=== PATIENT | female | born 1955 | race Caucasian/White ===

== ENCOUNTER → 2017-09-12 | Outpatient (CLI) | payer OTHER ==
[~2017-09-12] MED LIST: ASPIRIN; IBUPROFEN; KET10 PO; LEVO25TA56 PO; LEVO50TA80 PO; PER PO; TYLENOL; VITAMIN D
--- NOTE | 2017-09-12 15:56 | RADIOLOGY IMAGING REPORT ---
FACILITY: [facility] PATIENT NAME: TOY SALAZAR : [id number] MR: [id number] V: [id number] EXAM DATE: ORDERING PHYSICIAN: SAUMYA FARMER TECHNOLOGIST: Haleigh Costa PROCEDURE:BILATERAL DIGITAL SCREENING MAMMOGRAM WITH CAD ASSISTED INTERPRETATION & 3D TOMOSYNTHESIS COMPARISON:Prior mammograms 08/19/16, 08/08/15, 08/05/14, 11/17/12, 04/17/11 INDICATIONS:SCREENING FINDINGS: A small amount of fibroglandular tissue is seen throughout the breasts. The parenchymal pattern has remained stable allowing for difference in mammographic technique & patient positioning. There is no evidence of malignant appearing mass, malignant appearing calcification or other secondary sign of malignancy in either breast. DIAGNOSTIC CATEGORY 1--NEGATIVE. RECOMMENDATIONS: ROUTINE MAMMOGRAM AND CLINICAL EVALUATION. IMPRESSION: BIRADS 1: Negative. No significant abnormality is seen. Dictated by: Theodora Carlson M.D. on 09/12/2017 at 15:41 Transcribed by: SHIRA on 09/12/2017 at 15:44 Approved by: Theodora Carlson M.D. on 09/12/2017 at 15:55 [facility]
== END ==
LOC: MAMO 05:31
PROVIDERS: ATTEND Nurse Practitioner Family
DX: Z12.31 Encounter for screening mammogram for malignant neoplasm of breast (principal)
CPT/HCPCS: 77063; 77067

== ENCOUNTER 2017-11-04 00:27 | Day surgery (SDC) | payer OTHER ==
[~2017-11-04] VITALS: Ht 165.1 cm; Wt 70.8 kg
[~2017-11-04 00:27] MED LIST changes: +LEVO88TA45 PO
[2017-11-04 06:08] VITALS: BP 122/88
[2017-11-04] MEDS ORDERED: LIDOCAINE/SOD BICARB 8.4% SYR ID ONE (06:30)
[2017-11-04] MEDS ORDERED: NORMOSOL R SOLN(*) 1000 ML BAG 1,000 ML IV PRN (06:30)
--- NOTE | 2017-11-04 07:14 | Post Operative Progress Note ---
Post Operative Progress Note Date: Nov 04, 2017 Time: 07:36 Surgeon: mary Anesthesia: dr verde Pre-Op Diagnosis: history of polyps Post-Op Diagnosis: sigmoid diverticulosis Procedure(s): colonoscopy NATALIYA MCDONOUGH MD Nov 04, 2017 07:14
--- NOTE | 2017-11-04 07:14 | Short(Outpt) Discharge Summary ---
Discharge Summary Reason for Hosp/Final Diag: (1) Encounter for colonoscopy due to history of adenomatous colonic polyps Hospital Course & Plan: sigmoid diverticulosis Departure Discharge to: Home Discharge Instructions Home Meds Reported Medications Levothyroxine Sodium (LEVOTHYROXINE SODIUM) 88 Mcg Tablet, 88 MCG PO QDAY 10/29/17 Discontinued Reported Medications [Vitamin D] No Conflict Check, 0 Refills 05/10/11 [Ibuprofen] No Conflict Check, 0 Refills 05/10/11 [Tylenol] No Conflict Check, 0 Refills 05/10/11 Levothyroxine Sodium (Levothyroxine Sodium) 25 Mcg Tablet, 25 MCG PO DAILY, 0 Refills 05/10/11 Diet: High Fiber Activity: As Tolerated NATALIYA MCDONOUGH MD Nov 04, 2017 07:14
[2017-11-04] MEDS ORDERED: PROPOFOL EMUL 10MG/ML 20 ML VL ONE (07:15)
[2017-11-04] MEDS ORDERED: LIDOCAINE MPF 1% 5 ML VIAL ONE (07:15)
[2017-11-04 07:39] VITALS: BP 99/72
[2017-11-04 07:45] VITALS: BP 105/77
[2017-11-04 08:18] VITALS: BP 138/76
[2017-11-04 08:20] VITALS: BP 130/90
--- NOTE | 2017-11-04 08:38 | NACHTIGAL COLONOSCOPY ---
EVENT DATE: November 04, 2017 SURGEON: Abdulaziz Levine MD ANESTHESIOLOGIST: Carlos Andrade MD ANESTHESIA: IV sedation LOAN AND CREDIT MANAGER: Staff PREOPERATIVE DIAGNOSIS Personal history of polyps. POSTOPERATIVE DIAGNOSIS Sigmoid diverticulosis. PROCEDURE PERFORMED Colonoscopy. DESCRIPTION OF PROCEDURE The patient was placed in the left lateral decubitus position and given intravenous sedation. The rectal examination was unremarkable. The flexible colonoscope was inserted and advanced to the cecum. She had an excellent bowel prep. The ileocecal valve and base of the cecum were identified. The scope was slowly withdrawn. Care was taken to look behind the haustral folds. No abnormalities were noted in the cecum, right colon, transverse or descending colon. She had diverticula in the sigmoid colon. No evidence of diverticulitis. The rectum was normal. The scope was retroflexed and that appeared to be normal. She will require repeat colonoscopy in five years because of personal history of polyps. [place]
== END 2017-11-04 08:35 | disposition home or self-care (01) ==
LOC: OR 00:27
PROVIDERS: ATTEND Surgery
DX: Z12.11 Encounter for screening for malignant neoplasm of colon (principal); K57.30 Diverticulosis of large intestine without perforation or abscess without bleeding; Z86.010 Personal history of colon polyps
CPT/HCPCS: 00812; 45378; J2001; J2704

== ENCOUNTER → 2017-12-12 | Outpatient (CLI) | payer OTHER ==
--- NOTE | 2017-12-12 12:34 | RADIOLOGY IMAGING REPORT ---
FAC[place] [facility] [place]IENT NAME: Sahara Feliciano : 1955 MR: [id number] V: [id number] EXAM DATE: ORDERING PHYSICIAN: SAUMYA FARMER TECHNOLOGIST: Location: [facility] - [place] Patient: Sahara Feliciano : 1955 Visit/Account:[id number] Date of Sevice: 12/12/2017 3 views right hand Indication: Trauma 10 weeks ago. Comparison: None Available. Findings: No evidence of fracture, dislocation, or acute osseous abnormality of the right hand. There is no focal soft tissue abnormality. No evidence of radiopaque foreign body. Scattered mild degenerative changes. Impression: 1.No acute osseous abnormality of the right hand Report Dictated By: Mauricio Cuadra MD at 12/12/2017 12:29 PM Report E-Signed By: Mauricio Cuadra MD at 12/12/2017 12:31 PM WSN:[email or web address]
--- NOTE | 2017-12-12 12:37 | RADIOLOGY IMAGING REPORT ---
FACILITY: [facility] - [place] PATIENT NAME: Sahara Feliciano : 1955 MR: [id number] V: [id number] EXAM DATE: ORDERING PHYSICIAN: SAUMYA FARMER TECHNOLOGIST: Location: [facility] Patient: Sahara Feliciano : 1955 Visit/Account:[id number] Date of Sevice: 12/12/2017 2 views of the left fourth finger INDICATION: Trauma COMPARISON: None Available FINDINGS: No acute osseous abnormality identified. No evidence of radiopaque foreign body. The joint spaces are well-maintained. IMPRESSION: No acute abnormality of the left fourth finger. Report Dictated By: Mauricio Cuadra MD at 12/12/2017 12:31 PM Report E-Signed By: Mauricio Cuadra MD at 12/12/2017 12:33 PM WSN:[email or web address]
== END ==
LOC: RAD 11:52
PROVIDERS: ATTEND Nurse Practitioner Family
DX: M25.541 Pain in joints of right hand (principal)

== ENCOUNTER → 2018-11-23 | Outpatient (CLI) | payer OTHER ==
--- NOTE | 2018-11-23 15:05 | RADIOLOGY IMAGING REPORT ---
FACILITY: [facility] - [place] PATIENT NAME: Sahara Feliciano : 1955 MR: [id number] V: [id number] EXAM DATE: ORDERING PHYSICIAN: SAUMYA FARMER TECHNOLOGIST: Location: [facility] Patient: Sahara Feliciano : 1955 Visit/Account:[id number] Date of Sevice: 11/23/2018 DEXA Scan Clinical history: Screening. Comparison: DEXA scan from 11/17/2008. LUMBAR SPINE: The bone mineral density (BMD) measured from L1-L4 correlates with a Z-score of 0.1 and a T-score of -0.9 which is Normal as defined by the World Health Organization. The corresponding risk of fracture in the lumbar spine is 1-2 times increased compared with a young adult reference population. This v alue has decrease by 5.6 % since the prior study. More than 5% change is considered significant. HIP: Bone mineral density (BMD) measured in the LEFT total hip region correlates with a Z-score -0.8 and a T-score of -1.6 which is osteopenia as defined by the World Health Organization. The corresponding risk of fracture in the hip is 3-4 times increased compared to a young adult reference population. Th is value has decrease by 10.9 % since the prior study. More than 5% change is considered significant . T score left femoral neck -1.6 Bone mineral density (BMD) measured in the Femoral Neck region measures 0.814 g/cm?. IMPRESSION: 1. Lumbar spine: Normal. There has been 5.6% decrease in the bone mineral density since the previou s exam. 2. Left Total Hip: Osteopenia. There has been 10.9% decrease in the bone mineral density since the previous exam. 3. Femoral Neck: Bone Mineral Density is 0.814 g/cm? The next DEXA scan of this patient should include the following sites: L1-L4 and the left hip. FRAX? WHO Fracture Risk Assessment Tool link: <http://www.shef.ac.uk/FRAX/tool.jsp?locationValue=9> PLEASE NOTE: 1) The World Health Organization defines low BMD as follows: T-score Normal > -1 Osteopenia < -1 and > -2.5 Osteoporosis < -2.5 without fractures Established osteoporosis < -2.5 with fractures 2) In general, you may wish to consider: Diagnosis Treatment Follow-up DEXA Normal BMD Prevention 2-3 years Osteopenia Prevention/therapy 1-2 years Osteoporosis Therapy Yearly 3) Fracture risk estimated from the T-score is more accurate for vertebral fractures (often spontane ous) than for hip fractures. Report Dictated By: Theodora Carlson MD at 11/23/2018 2:58 PM Report E-Signed By: Theodora Carlson MD at 11/23/2018 2:59 PM WSN:[email or web address]
--- NOTE | 2018-11-24 08:37 | RADIOLOGY IMAGING REPORT ---
FACILITY: [facility] - [place]IENT NAME: TOY SALAZAR : [id number] MR: [id number] V: [id number] EXAM DATE: ORDERING PHYSICIAN: SAUMYA FARMER TECHNOLOGIST: Haleigh Costa PROCEDURE: BILATERAL DIGITAL SCREENING MAMMOGRAM WITH CAD ASSISTED INTERPRETATION & 3D TOMOSYNTHESIS. REASON FOR STUDY: Screening. FAMILY HISTORY OF BREAST CANCER: Mother at age 60. BREAST PROCEDURES/TREATMENTS: None. COMPARISON: 09/12/17, 08/19/16, 08/08/15, 08/05/14, 11/17/12. VIEWS OBTAINED: Bilateral 2D & 3D full field CC & MLO projections. BREAST DENSITY: There are scattered areas of fibroglandular density throughout the breasts. MAMMOGRAM FINDINGS: The parenchymal pattern has remained stable allowing for difference in mammographic technique & patient positioning. IMPRESSION: BIRADS 1: Negative. DIAGNOSTIC CATEGORY 1--NEGATIVE. RECOMMENDATIONS: ROUTINE MAMMOGRAM AND CLINICAL EVALUATION. Dictated by: Theodora Carlson M.D. on 11/23/2018 at 16:37 Transcribed by: RITESH on 11/24/2018 at 7:59 Approved by: Theodora Carlson M.D. on 11/24/2018 at 8:34 [facility]
== END ==
LOC: MAMO 01:06
PROVIDERS: ATTEND Nurse Practitioner Family
DX: Z12.31 Encounter for screening mammogram for malignant neoplasm of breast (principal); Z13.820 Encounter for screening for osteoporosis; M85.852 Other specified disorders of bone density and structure, left thigh; Z80.3 Family history of malignant neoplasm of breast
CPT/HCPCS: 77063; 77067; 77080